=== PATIENT | female | born 1965 | race Hispanic/Latino ===

== ENCOUNTER 2016-08-13 14:57 | Emergency (ER) | payer BC | END 2016-08-13 16:27 | disposition home or self-care (01) | LOC: NAV ERS 14:57 | DX: H60.92 Unspecified otitis externa, left ear (principal); H65.92 Unspecified nonsuppurative otitis media, left ear; F41.9 Anxiety disorder, unspecified; Z79.899 Other long term (current) drug therapy | CPT/HCPCS: 99282 ==

== ENCOUNTER 2024-08-08 21:35 | Emergency (ER) | payer BC ==
[2024-08-08] MEDS ORDERED: Acetaminophen 500 MG TAB ONE (22:09)
[2024-08-08] MEDS ORDERED: guaiFENesin ER 600 MG TAB ONE (22:09)
[2024-08-08] MEDS ORDERED: Oseltamivir 75 MG CAP ONE (22:29)
== END 2024-08-08 23:10 | disposition home or self-care (01) ==
LOC: NAV ERS 21:35
DX: J10.1 Influenza due to other identified influenza virus with other respiratory manifestations (principal)
CPT/HCPCS: 71046; 87428